=== PATIENT | male | born 1965 | race Caucasian/White ===

== ENCOUNTER → 2017-07-06 | Outpatient (CLI) | payer BC | END | disposition home or self-care (01) | LOC: CDC 12:41 | DX: R00.1 Bradycardia, unspecified (principal); I45.4 Nonspecific intraventricular block | CPT/HCPCS: 93000 ==

== ENCOUNTER 2017-07-12 09:34 | Day surgery (SDC) | payer BC ==
[~2017-07-12] VITALS: Ht 180.3 cm; Wt 84.0 kg
[2017-07-12 10:18] VITALS: BP 110/59
[2017-07-12] MEDS ORDERED: PERCOCET 5/31 TABLET PO (13:22)
[2017-07-12 14:50] VITALS: BP 116/78
[2017-07-12 15:50] VITALS: BP 113/73
[2017-07-12 16:58] VITALS: BP 131/76
== END 2017-07-12 17:25 | disposition home or self-care (01) ==
LOC: SDC 09:34
PROC: 0FT44ZZ Resection of Gallbladder, Percutaneous Endoscopic Approach (ICD-10-PCS; principal; 2017-07-12)
DX: K80.12 Calculus of gallbladder with acute and chronic cholecystitis without obstruction (principal); Z87.891 Personal history of nicotine dependence
CPT/HCPCS: 88304; J0131; J0690; J1100; J1170; J1885; J2250; J2405; J2710; J3010